=== PATIENT | male | born 1965 | race Caucasian/White ===

== ENCOUNTER 2019-02-20 12:40 | Observation (INO) | payer BC ==
[2019-02-20] MEDS ORDERED: SODIUM CHLORIDE 0.9% 1,000 ML IV STA (13:01)
[2019-02-20] MEDS ORDERED: KETOROLAC 30 MG/ML 1 ML VIAL IVP STA (13:03)
[2019-02-20 13:37] LABS: Appearance,Urine Clear (Clear); Basophils # (A) 0.1 k/uL (0-0.2); Basophils % (A) 1 %; Bilirubin,Urine Negative (Negative); Blood,Urine Negative (Negative); Color,Urine Yellow; Eosinophils # (A) 0.2 k/uL (0-0.7); Eosinophils % (A) 2 %; Glucose,Urine (UA) Negative (Negative); HGB 16.4 gm/dL (13.0-17.5); Ketones,Urine Negative (Negative); Leukocyte Esterase,Urine Negative (Negative); Lymphocytes # (A) 1.3 k/uL (1.0-4.8); Lymphocytes % (A) 15 %; MCH 31.4 pg (25.0-35.0); MCHC 33.4 g/dL (31.0-37.0); MCV 93.9 fL (80.0-100.0); Mean Platelet Volume 7.5; Monocytes # (A) 0.5 k/uL (0-1.0); Monocytes % (A) 6 %; Neutrophils # (A) 6.8 k/uL (1.3-7.7); Neutrophils % (A) 76 %; Nitrite,Urine Negative (Negative); Platelet Count 191 k/uL (150-450); Protein,Urine Negative (Negative); RBC 5.22 m/uL (4.30-5.90); RDW 13.5 % (11.5-15.5); Specific Gravity,Urine 1.016 (1.001-1.035); Urobilinogen,Urine <2.0 mg/dL (<2.0); WBC 8.9 k/uL (3.8-10.6)
--- NOTE | 2019-02-20 13:44 | XR ---
EXAMINATION TYPE: XR chest 2V DATE OF EXAM: 02/20/2019 COMPARISON: Prior chest x-ray 05/05/2013 HISTORY: Chest pain, left shoulder pain for 1 week TECHNIQUE: Frontal and lateral views of the chest are obtained. FINDINGS: There are overlying cardiac leads. Patient is rotated. There is no focal air space opacity , pleural effusion, or pneumothorax seen. The cardiac silhouette size is within normal limits. The osseous structures are intact. IMPRESSION: No acute cardiopulmonary process.
[2019-02-20 13:46] LABS: INR 0.9 (<1.2); Partial Thromboplastin Time 25.2 sec (22.0-30.0); Prothrombin Time 9.5 sec (9.0-12.0)
[2019-02-20 13:58] LABS: ALT 28 U/L (21-72); AST 23 U/L (17-59); African American GFR (CKD) >90 (>60 ml/min/1.73 sqM); Albumin 4.7 g/dL (3.5-5.0); Alkaline Phosphatase 82 U/L (38-126); Anion Gap 10 mmol/L; Blood Urea Nitrogen 14 mg/dL (9-20); Calcium 9.7 mg/dL (8.4-10.2); Carbon Dioxide 25 mmol/L (22-30); Chloride 105 mmol/L (98-107); Glucose 113 mg/dL (74-99); Magnesium 2.1 mg/dL (1.6-2.3); Non-African American GFR(CKD) >90 (>60 ml/min/1.73 sqM); Potassium 3.8 mmol/L (3.5-5.1); Sodium 140 mmol/L (137-145); Total Bilirubin 0.6 mg/dL (0.2-1.3); Total Protein 7.9 g/dL (6.3-8.2)
--- NOTE | 2019-02-20 14:18 | ED ---
Chest Pain HPI - General Chief Complaint: Chest Pain Stated Complaint: Chest pain Time Seen by Provider: 02/20/19 12:48 Source: patient Mode of arrival: ambulatory Limitations: no limitations - History of Present Illness Initial Comments: Patient is a 53-year-old male presenting to the emergency Department with complaints of chest pain that has been present for the last couple weeks. Patient describes the pain as pressure on the lateral aspect of his left chest which also radiates into the left shoulder and sometimes up into the left side of the neck. Patient states there is no alleviating or aggravating factors. Patient states he does not like going to the doctor and has not seen his doctor in many years. Patient's 2 children are with him now and they are the reason that he came in today. Patient denies any shortness of breath, fever, chills. Patient denies any recent travel. Patient denies any trauma to the area. Patient denies any heart disease. Patient admits to being an every day smoker and moderate drinker. Patient does have history of hypertension and thyroid disease. Patient has no other complaints at this time. Upon arrival to the ER, vital signs are stable. - Related Data Home Medications Medication Instructions Recorded Confirmed Diclofenac Sodium [Voltaren] 75 mg PO BID PRN 02/20/19 02/20/19 Levothyroxine Sodium [Synthroid] 100 mcg PO DAILY 02/20/19 02/20/19 Losartan/Hydrochlorothiazide 1 tab PO DAILY 02/20/19 02/20/19 [Losartan-Hctz 100-25 mg Tab] Allergies Allergy/AdvReac Type Severity Reaction Status Date / Time ampicillin Allergy stated Verified 02/20/19 13:31 "rash and became very sick as a child" cephalexin monohydrate Allergy stated Verified 02/20/19 13:31 [From Keflex] "rash and became very sick as a child" Review of Systems ROS Statement: Those systems with pertinent positive or pertinent negative responses have been documented in the HPI. ROS Other: All systems not noted in ROS Statement are negative. EKG Findings - EKG Comments: EKG Findings:: Ventricular rate 72, AL interval 136, QTC 422. Normal sinus rhythm. No acute ST segment changes. Past Medical History Past Medical History: Hypertension Additional Past Medical History / Comment(s): STATED "NO CURRENT MEDICATIONS FOR HTN, WAS GIVEN A PRESCRIPTION TO START AFTER SURGERY.", HX HAVING "STRESS" SEIZURE X 1 YRS AGO,STEROIDS W/IN 3 MOS History of Any Multi-Drug Resistant Organisms: None Reported Past Surgical History: Orthopedic Surgery Additional Past Surgical History / Comment(s): rachelle elbow surgeries,r thumb repair Past Anesthesia/Blood Transfusion Reactions: No Reported Reaction Past Psychological History: No Psychological Hx Reported Smoking Status: Current every day smoker Past Alcohol Use History: Occasional Past Drug Use History: None Reported - Past Family History Mother Additional Family Medical History / Comment(s): "leaky valve" General Exam - General Exam Comments Initial Comments: GENERAL: Well-appearing, well-nourished and in no acute distress. HEAD: Atraumatic, normocephalic. EYES: Pupils equal round and reactive to light, extraocular movements intact, sclera anicteric, conjunctiva are normal. ENT: TMs normal, nares patent, oropharynx clear without exudates. Moist mucous membranes. NECK: Normal range of motion, supple without lymphadenopathy or JVD. LUNGS: Breath sounds clear to auscultation bilaterally and equal. No wheezes rales or rhonchi. HEART: Regular rate and rhythm without murmurs, rubs or gallops. No pain with palpation of the chest. ABDOMEN: Soft, nontender, normoactive bowel sounds. No guarding, no rebound. No masses appreciated. : Deferred EXTREMITIES: Normal range of motion, no pitting or edema. No clubbing or cyanosis. NEUROLOGICAL: Normal speech, normal gait. PSYCH: Normal mood, normal affect. SKIN: Warm, Dry, normal turgor, no rashes or lesions noted. Limitations: no limitations Course Vital Signs 02/20/19 02/20/19 12:41 14:00 Temperature 97.8 F Pulse Rate 66 58 L Respiratory 16 16 Rate Blood Pressure 143/91 115/83 O2 Sat by Pulse 99 97 Oximetry [facility] Patient is a 53-year-old male presenting with chest pain that has been present for the last couple weeks. Vital signs are stable. Exam is unremarkable. Lab work shows no acute findings. Troponin is normal. EKG is normal, no acute changes. Chest x-ray is normal. Patient was given some fluids and Toradol without much relief of symptoms. I discussed workup with patient and I recommended him being admitted for observation with cardiology consult. Patient was reluctant at first to stay however did agree. Patient will be admitted under Dr. Lynn with cardiology consult. Case was discussed in detail with Dr. Tovar who agrees with this plan of care. - Wells Criteria Clinical Symptoms of DVT: (0) No Disposition Clinical Impression: Chest pain Disposition: ADMITTED IP TO THIS HOSP Condition: Stable Is patient prescribed a controlled substance at d/c from ED?: No Referrals: Ck Oliva MD [Primary Care Provider] - 1-2 days Decision Date: 02/20/19 Decision Time: 14:30
[2019-02-20] MEDS ORDERED: NITROGLYCERIN SL TABS 0.4 MG TAB SUBLINGUAL PRN (14:30)
[2019-02-20] MEDS ORDERED: NICOTINE 21MG/24HR PATCH TRANSDERM STA (14:45)
[2019-02-20 15:12] VITALS: RESP 18
[2019-02-20] MEDS ORDERED: ETODOLAC 200 MG CAPSULE PO PRN (15:45)
[2019-02-20] MEDS ORDERED: HYDROmorphone 1 MG/ML 1 ML SYRINGE IVP STA ×2 (16:12→18:14)
[2019-02-20] MEDS: NITROGLYCERIN OINT 1 INCH/GM PACKET TOPICAL SCH (16:23)
--- NOTE | 2019-02-20 20:40 | P.CRDCN ---
History of Present Illness Consult date: 02/20/19 Chief complaint: Chest pain History of present illness: This is a very pleasant 53-year-old gentleman who was admitted to the observation unit for chest discomfort consulted to see the patient because of that. The patient does have a past medical history significant for hypertension as well as history of smoking. He was in his usual state of health until about a week ago where he has been under a lot of stress lately when he started experi encing chest discomfort, mainly beneath the left nipple as well as the lateral wall of the chest on the left side. The chest discomfort also according to review to the left arm and also associated with no feeling in the neck. No associated symptoms of shortness of breath, sweating, dizziness, or syncope. The patient clearly stated that the discomfort has been constant for the last week and not getting better or worse. The chest discomfort is clearly not exertional related as well. Because he was having chest discomfort tonight, his daughter and his son requested him to come to the hospital. No history of coronary artery disease and the patient never seen a marine photographer in the past. Achy she showed sinus rhythm without any ischemic or concerning ST or T-wave abnormalities. The first set of cardiac enzymes came in to be unremarkable. The chest x-ray did not show any acute abnormalities. The patient never had any cardiac testing like a stress test or heart catheterization in the past. Currently he is still having chest discomfort and he states is slightly better compared to before. His physical examination is unremarkable. Past Medical History Past Medical History: Hypertension, Seizure Disorder, Thyroid Disorder Additional Past Medical History / Comment(s): One "stress related" seizure many years ago, hypothyroid, pain in multiple joints. History of Any Multi-Drug Resistant Organisms: None Reported Past Surgical History: Orthopedic Surgery Additional Past Surgical History / Comment(s): rachelle elbow surgeries, r thumb repair, R knee arthroscopy, R wrist surgery x 3 for reconstruction/has metal plate. Past Anesthesia/Blood Transfusion Reactions: No Reported Reaction Smoking Status: Current every day smoker - Past Family History Mother Additional Family Medical History / Comment(s): "leaky valve" Father History Unknown: Yes Medications and Allergies Home Medications Medication Instructions Recorded Confirmed Type Diclofenac Sodium [Voltaren] 75 mg PO BID PRN 02/20/19 02/20/19 History Levothyroxine Sodium [Synthroid] 100 mcg PO DAILY 02/20/19 02/20/19 History Losartan/Hydrochlorothiazide 1 tab PO DAILY 02/20/19 02/20/19 History [Losartan-Hctz 100-25 mg Tab] Allergies Allergy/AdvReac Type Severity Reaction Status Date / Time ampicillin Allergy stated Verified 02/20/19 13:31 "rash and became very sick as a child" cephalexin monohydrate Allergy stated Verified 02/20/19 13:31 [From Keflex] "rash and became very sick as a child" Physical Exam Vitals: Vital Signs Temp Pulse Pulse Pulse Resp BP BP 02/20/19 19:49 97.3 F L 60 18 112/66 02/20/19 16:44 02/20/19 15:10 97.5 F L 55 L 18 02/20/19 14:54 98 F 02/20/19 14:00 58 L 16 115/83 02/20/19 12:41 97.8 F 66 16 143/91 BP Pulse Ox 02/20/19 19:49 96 02/20/19 16:44 95 02/20/19 15:10 159/91 100 02/20/19 14:54 02/20/19 14:00 97 02/20/19 12:41 99 Intake and Output 02/20/19 02/20/19 02/20/19 06:59 14:59 22:59 Intake Total 240 Balance 240 Intake: Oral 240 Other: Voiding Method Toilet Weight 95.254 kg 95.254 kg - Constitutional General appearance: no acute distress - Respiratory Respiratory: bilateral: CTA - Cardiovascular Rhythm: regular Heart sounds: normal: S1, S2 Results 02/20/19 13:20 02/20/19 13:20 Cardiac Enzymes 02/20/19 02/20/19 02/20/19 Range/Units 13:20 13:20 19:03 AST 23 (17-59) U/L Troponin I <0.012 <0.012 (0.000-0.034) ng/mL Coagulation 02/20/19 Range/Units 13:20 PT 9.5 (9.0-12.0) sec APTT 25.2 (22.0-30.0) sec CBC 02/20/19 Range/Units 13:20 WBC 8.9 (3.8-10.6) k/uL RBC 5.22 (4.30-5.90) m/uL Hgb 16.4 (13.0-17.5) gm/dL Hct 49.0 (39.0-53.0) % Plt Count 191 (150-450) k/uL Comprehensive Metabolic Panel 02/20/19 Range/Units 13:20 Sodium 140 (137-145) mmol/L Potassium 3.8 (3.5-5.1) mmol/L Chloride 105 (98-107) mmol/L Carbon Dioxide 25 (22-30) mmol/L BUN 14 (9-20) mg/dL Creatinine 0.78 (0.66-1.25) mg/dL Glucose 113 H (74-99) mg/dL Calcium 9.7 (8.4-10.2) mg/dL AST 23 (17-59) U/L ALT 28 (21-72) U/L Alkaline Phosphatase 82 (38-126) U/L Total Protein 7.9 (6.3-8.2) g/dL Albumin 4.7 (3.5-5.0) g/dL Current Medications Generic Name Dose Route Start Last Admin Trade Name Freq PRN Reason Stop Dose Admin Aspirin 325 mg 02/21/19 09:00 Aspirin PO DAILY [facility] Etodolac 400 mg 02/20/19 15:45 Lodine PO BID PRN Pain HCTZ/Losartan Potassium 2 each 02/21/19 09:00 Hyzaar 50-12.5 PO DAILY [facility] Levothyroxine Sodium 100 mcg 02/21/19 06:30 Synthroid PO DAILY@0630 [facility] Morphine Sulfate 4 mg 02/20/19 15:48 Morphine Sulfate (Inj) IVP Q6HR PRN Pain Nitroglycerin 0.4 mg 02/20/19 14:30 Nitrostat SUBLINGUAL Q5M PRN Chest Pain Nitroglycerin 1 inch 02/20/19 18:00 02/20/19 16:23 Nitro-Bid Oint TOPICAL 1 inch Q6HR [facility] Administration Intake and Output 02/20/19 02/20/19 02/20/19 06:59 14:59 22:59 Intake Total 240 Balance 240 Intake: Oral 240 Other: Voiding Method Toilet Weight 95.254 kg 95.254 kg Patient Weight 02/21/19 06:59 Weight 95.254 kg 02/20/19 13:20 02/20/19 13:20 Assessment and Plan Assessment: Assessment #1 atypical chest discomfort #2 hypertension #3 significant history of smoking Plan #1 rule out acute coronary syndrome #2 rule out pulmonary embolism #3 rule out severe underlying coronary artery disease #4 follow-up with the severe cardiac enzymes #5 follow-up with The patient Thank you for allowing us participate in his care
[2019-02-21] MEDS: MORPHINE SULFATE 4 MG/ML SYRINGE IVP PRN ×4 (00:42→19:40)
[2019-02-21] MEDS: NITROGLYCERIN OINT 1 INCH/GM PACKET TOPICAL SCH ×6 (00:42→23:11)
[2019-02-21 05:53] LABS: Cholesterol 194 mg/dL (<200); HDL Cholesterol 35 mg/dL (40-60); LDL Cholesterol,Calculated 134 mg/dL (0-99); Triglycerides 125 mg/dL (<150)
[2019-02-21] MEDS: LEVOTHYROXINE 100 MCG TAB PO SCH (06:49)
[2019-02-21] MEDS: ASPIRIN 325 MG TAB PO SCH (10:05)
[2019-02-21] MEDS: LOSARTAN-HCTZ 50-12.5 MG 1 EACH TAB PO SCH (10:05)
--- NOTE | 2019-02-21 11:22 | P.PN ---
Subjective Progress Note Date: 02/21/19 Principal diagnosis: Chest pain This is a pleasant 53-year-old female patient with a past medical history significant for hypertension and history of smoking presented to the hospital with a chest discomfort. The EKG showed sinus rhythm without any ST or T-wave abnormalities. The cardiac enzymes were checked and came in to be unremarkable. The patient was ruled out for acute coronary event. He was seen at this morning. He continues to have ongoing chest discomfort throughout the night. Having said that, I am concerned about severe underlying coronary artery disease and I recommended proceeding with coronary angiogram to be done in the next 12-24 hours. Objective - Vital Signs Vital signs: Vital Signs Temp 97.9 F 02/21/19 07:56 Pulse 63 02/21/19 11:04 Resp 18 02/21/19 07:56 BP 127/74 02/21/19 11:04 Pulse Ox 95 02/21/19 07:56 Intake & Output 02/20/19 02/21/19 02/21/19 18:59 06:59 18:59 Intake Total 240 Balance 240 Weight 95.254 kg Intake: Oral 240 Other: Voiding Method Toilet Toilet Toilet # Voids 1 - Constitutional General appearance: Present: no acute distress - Respiratory Respiratory: bilateral: CTA - Cardiovascular Rhythm: regular Heart sounds: normal: S1, S2 - Labs CBC & Chem 7: 02/20/19 13:20 02/20/19 13:20 Labs: Abnormal Lab Results - Last 24 Hours (Table) 02/20/19 02/20/19 Range/Units 13:20 13:20 Glucose 113 H (74-99) mg/dL LDL Cholesterol, Calc 134 H (0-99) mg/dL HDL Cholesterol 35 L (40-60) mg/dL Assessment and Plan Assessment: Assessment #1 atypical chest discomfort #2 hypertension #3 significant history of smoking Plan #1 acute coronary syndrome was ruled out #2 giving the ongoing chest discomfort, I would recommend proceeding with coronary angiogram
[2019-02-21 11:31] VITALS: BMI 26.9
[2019-02-21] MEDS: NICOTINE 21MG/24HR PATCH TRANSDERM SCH (11:49)
--- NOTE | 2019-02-21 15:30 | P.HPIM ---
History of Present Illness H&P Date: 02/21/19 Chief Complaint: Chest pain History of presenting complaint: This is a pleasant 53-year-old patient of Dr. Ck Oliva. Chronic stable medical conditions include hypertension, hypothyroid, social stressors. Patient is going through stress because of his relationship with his . For 2 weeks patient been having a pressure-like sensation on the left side of the chest. Is also going down her left arm. Sometimes breaks out in a sweat. No dizziness no lightheadedness or shortness of breath. Not related to activity with exertion or to rest. No prior cardiac history. Patient otherwise active. Patient is brought in to rule out a cardiac cause. Review of systems: GEN.: None EYES: None HEENT: None NECK: None RESPIRATORY: None CARDIOVASCULAR: As above GASTROINTESTINAL: None GENITOURINARY: None MUSCULOSKELETAL: None LYMPHATICS: None HEMATOLOGICAL: None PSYCHIATRY: Anxious, not sleeping too well NEUROLOGICAL: None Past medical history to include: Hypertension, hypothyroid, no definite seizure disorder Social history: . Does smoke. This is a pack daily for 23 years. 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 Family history: Leaky valve Physical examination: VITAL SIGNS: 97.8, 66, 16, 143/91, 39% room air GENERAL: BMI 27, sitting up slightly anxious. EYES: Pupils equal. Conjunctiva normal. HEENT: External appearance of nose and ears normal, oral cavity grossly normal. NECK: JVD not raised; masses not palpable. HEART: First and second heart sounds are normal; no edema. LUNGS: Respiratory rate normal; clear to auscultation. ABDOMEN: Soft, nontender, liver spleen not palpable, no masses palpable. PSYCH: Alert and oriented x3; mood and affect slightly anxiousl. NEUROLOGICAL: Cranial nerves grossly intact; no facial asymmetry, power and sensation grossly intact. LYMPHATICS: No lymph nodes palpable in the axilla and neck Investigations: White count 8.9 hemoglobin 16.4 platelets 191 progression 3.8 creatinine 0.78 Troponin I 3 negative EKG tracing personally reviewed by me-normal sinus rhythm Chest x-ray film personally reviewed by me-lung gaming clear Assessment: -Left anterior chest wall pain going on the left arm. Present for 2 weeks. Not related to related to exertion. EKG is normal. Troponins are negative. Could be musculoskeletal pain. Cannot rule out a cardiac cause. -Essential hypertension -Hypothyroid -Chronic nicotine dependence patient cigarette smoker -Social stressors from issues with his Plan: Cardiology consulted. Patient is on aspirin. Nitropaste. Cardiology is being a cardiac cath tomorrow morning. Care was discussed with the patient. Questions were answered. Patient's son and daughter in the room with him. Past Medical History Past Medical History: Hypertension, Seizure Disorder, Thyroid Disorder Additional Past Medical History / Comment(s): One "stress related" seizure many years ago, hypothyroid, pain in multiple joints. History of Any Multi-Drug Resistant Organisms: None Reported Past Surgical History: Orthopedic Surgery Additional Past Surgical History / Comment(s): rachelle elbow surgeries, r thumb repair, R knee arthroscopy, R wrist surgery x 3 for reconstruction/has metal plate. Past Anesthesia/Blood Transfusion Reactions: No Reported Reaction Smoking Status: Current every day smoker - Past Family History Mother Additional Family Medical History / Comment(s): "leaky valve" Father History Unknown: Yes Medications and Allergies Home Medications Medication Instructions Recorded Confirmed Type Diclofenac Sodium [Voltaren] 75 mg PO BID PRN 02/20/19 02/20/19 History Levothyroxine Sodium [Synthroid] 100 mcg PO DAILY 02/20/19 02/20/19 History Losartan/Hydrochlorothiazide 1 tab PO DAILY 02/20/19 02/20/19 History [Losartan-Hctz 100-25 mg Tab] Allergies Allergy/AdvReac Type Severity Reaction Status Date / Time ampicillin Allergy stated Verified 02/20/19 13:31 "rash and became very sick as a child" cephalexin monohydrate Allergy stated Verified 02/20/19 13:31 [From Keflex] "rash and became very sick as a child" Physical Exam Vitals: Vital Signs Temp Pulse Pulse Pulse Resp BP BP 02/21/19 07:56 97.9 F 66 18 123/72 02/21/19 04:00 97.6 F 67 18 111/67 02/20/19 23:23 97.8 F 60 18 111/66 02/20/19 19:49 97.3 F L 60 18 112/66 02/20/19 16:44 02/20/19 15:10 97.5 F L 55 L 18 02/20/19 14:54 98 F 02/20/19 14:00 58 L 16 115/83 02/20/19 12:41 97.8 F 66 16 143/91 BP Pulse Ox 02/21/19 07:56 95 02/21/19 04:00 95 02/20/19 23:23 94 L 02/20/19 19:49 96 02/20/19 16:44 95 02/20/19 15:10 159/91 100 02/20/19 14:54 02/20/19 14:00 97 02/20/19 12:41 99 Intake and Output 02/20/19 02/21/19 02/21/19 22:59 06:59 14:59 Intake Total 240 Balance 240 Intake: Oral 240 Other: Voiding Method Toilet Toilet Toilet # Voids 2 1 Weight 95.254 kg Results CBC & Chem 7: 02/20/19 13:20 02/20/19 13:20 Labs: Abnormal Lab Results - Last 24 Hours (Table) 02/20/19 02/20/19 Range/Units 13:20 13:20 Glucose 113 H (74-99) mg/dL LDL Cholesterol, Calc 134 H (0-99) mg/dL HDL Cholesterol 35 L (40-60) mg/dL Thrombosis Risk Factor Assmnt - Choose All That Apply Any of the Below Risk Factors Present?: Yes Each Factor Represents 1 point: Age 41-60 years, Obesity (BMI >25) Other Risk Factors: No Other congenital or acquired thrombophilia - If yes, enter type in comment: No Thrombosis Risk Factor Assessment Total Risk Factor Score: 2 Thrombosis Risk Factor Assessment Level: Low Risk
[2019-02-21] MEDS ORDERED: CALCIUM CARBONATE 500 MG CHEWABLE PO PRN (18:16)
[2019-02-22] MEDS: MORPHINE SULFATE 4 MG/ML SYRINGE IVP PRN ×2 (00:46→06:14)
[2019-02-22] MEDS: LEVOTHYROXINE 100 MCG TAB PO SCH (06:13)
[2019-02-22] MEDS: ASPIRIN 325 MG TAB PO SCH (06:13)
[2019-02-22] MEDS: LOSARTAN-HCTZ 50-12.5 MG 1 EACH TAB PO SCH (06:13)
[2019-02-22 07:23] VITALS: PULSE 61; TEMP 97.7
[2019-02-22] MEDS ORDERED: LIDOCAINE 1% INJ 10MG/ML (20 ML MDV) ONE (08:03)
[2019-02-22] MEDS ORDERED: VERAPAMIL 2.5 MG/ML 2 ML AMP ONE (08:04)
[2019-02-22] MEDS ORDERED: SODIUM CHLORIDE 0.9% 1,000 ML IV ONE (08:08)
[2019-02-22] MEDS ORDERED: MIDAZOLAM 2 MG/2 ML VIAL IVP ONE (08:32)
[2019-02-22] MEDS ORDERED: LIDOCAINE 1% INJ 10MG/ML (20 ML MDV) SQ ONE (08:37)
[2019-02-22] MEDS ORDERED: HEPARIN SODIUM 1,000 UN/ML (10ML VL) ONE (08:38)
[2019-02-22] MEDS: VERAPAMIL SYRINGE (5 MG/10 ML) INTRAARTER ONE ×2 (08:40→08:46)
[2019-02-22] MEDS ORDERED: HEPARIN SODIUM 1,000 UN/ML (10ML VL) IV ONE (08:40)
[2019-02-22] MEDS ORDERED: IOPAMIDOL-370 125ML BTL INJ ONE (08:46)
[2019-02-22] MEDS ORDERED: RX INFO: IV CONTRAST WAS GIVEN 1 EACH MISC MISCELLANE PRN (08:52)
[2019-02-22] MEDS ORDERED: SODIUM CHLORIDE 0.9% 1,000 ML IV SCH (09:00)
--- NOTE | 2019-02-22 09:39 | CC ---
CARDIAC CATHETERIZATION REPORT DATE OF SERVICE: February 22, 2019 PERFORMING PHYSICIAN: Jarod Sinclair MD. PROCEDURE PERFORMED: 1. Selective right and left coronary angiogram. 2. Left heart catheterization. INDICATION: This is a 53-year-old gentleman with hypertension and smoking, who presents and was admitted to the hospital with chest discomfort and ruled in for acute [id number] myocardial infarction. He continues to have ongoing chest discomfort, worse with exertion and because of that a heart catheterization was advised. APPROACH: Right radial artery. COMPLICATION: None. LEVEL OF SEDATION: Moderate with sedation length of 10 minutes. PROCEDURE DESCRIPTION: After obtaining an informed consent, the patient was brought to the cardiac cath lab technologist. The right radial artery was cannulated using micropuncture technique, the micropuncture wire passed easily. Then I placed a 6-Danish sheath 11 cm in the right radial artery. After that, I gave the patient 2 mg of verapamil IA and 10,000 units of heparin IV. Selective right and left coronary angiogram performed using JR4 and JL3.5 catheters. Left heart catheterization was performed using JL3.5 catheter, which flipped into the LV then I did pullback across aortic valve. The procedure was completed without any complication. SELECTIVE CORONARY ANGIOGRAM: 1. The right coronary artery is a moderate to large caliber vessel and is a dominant vessel and appeared to be angiographically normal. 2. The left main is angiographically normal. It bifurcates into LCX and LAD. 3. The LCX is a large caliber vessel. It is a nondominant vessel. The left circumflex itself is angiographically normal. In the midportion, it gives rise into a large first OM branch and distally gives rise into a second OM branch which worked as a PDA. Both branches are angiographically normal. 4. The LAD: The proximal LAD appeared to be normal. The mid LAD by the bifurcation of the first diagonal branch has mild disease only. The LAD after that appeared to be angiographically normal and gives rise into a second diagonal branch which seems to be normal. HEMODYNAMICS: The LVEDP was 10 mmHg without significant gradient across the aortic valve. CONCLUSION: 1. Mild nonobstructive coronary artery disease. 2. Normal left ventricular end-diastolic pressure. POSTPROCEDURE MANAGEMENT: 1. Medical treatment. 2. Follow up with the patient. MMODL / IJN: [id number] /
[2019-02-22 10:49] VITALS: BP 119/73
[2019-02-22] MEDS: NICOTINE 21MG/24HR PATCH TRANSDERM SCH (11:40)
--- NOTE | 2019-02-22 23:33 | P.DS ---
Providers Date of admission: 02/20/19 14:34 Expected date of discharge: 02/22/19 Attending physician: Branden Lynn Consults: 02/20/19 14:30 Consult Physician Urgent Consulting Provider: Mg Sexton Consult Reason/Comments: Chest pain Do you want consulting provider notified?: Yes Primary care physician: Ck Oliva [place] [facility] Course: Chief Complaint: Chest pain History of presenting complaint: This is a pleasant 53-year-old patient of Dr. Ck Oliva. Chronic stable medical conditions include hypertension, hypothyroid, social stressors. Patient is going through stress because of his relationship with his . For 2 weeks patient been having a pressure-like sensation on the left side of the chest. Is also going down her left arm. Sometimes breaks out in a sweat. No dizziness no lightheadedness or shortness of breath. Not related to activity with exertion or to rest. No prior cardiac history. Patient otherwise active. Patient is brought in to rule out a cardiac cause. Cardiac catheterization showed minimal disease. Patient is significantly sleep deprived. Symptoms are felt a certain degree to be psychosomatic. Importance of sleep was discussed with the patient. Mid Level Game Designer: Dr. Sinclair from cardiology Physical examination: VITAL SIGNS: 97.7, 61, 18, 120/71, 94% room air GENERAL: Sitting up, slightly anxious EYES: Pupils equal. Conjunctiva normal. HEENT: External appearance of nose and ears normal, oral cavity grossly normal. NECK: JVD not raised; masses not palpable. HEART: First and second heart sounds are normal; no edema. LUNGS: Respiratory rate normal; clear to auscultation. ABDOMEN: Soft, nontender, liver spleen not palpable, no masses palpable. PSYCH: Alert and oriented x3; mood and affect slightly anxiousl. Investigations: White count 8.9 hemoglobin 16.4 platelets 191 progression 3.8 creatinine 0.78 Troponin I 3 negative EKG tracing personally reviewed by me-normal sinus rhythm Chest x-ray film personally reviewed by me-lung gaming clear Cardiac catheterization-mild coronary artery disease Assessment: -Left anterior chest wall , possibly psychosomatic -Essential hypertension -Hypothyroid -Chronic nicotine dependence patient cigarette smoker -Social stressors from issues with his -Chronic sleep deprivation Disposition: Home Patient Condition at Discharge: Stable Plan - Discharge Summary Discharge Rx Participant: No New Discharge Prescriptions: New Aspirin 81 mg PO DAILY #30 chewable Nicotine 21Mg/24Hr Patch [Habitrol] 1 patch TRANSDERM DAILY #14 patch Famotidine [Pepcid] 20 mg PO BID #60 tablet Continue Levothyroxine Sodium [Synthroid] 100 mcg PO DAILY Losartan/Hydrochlorothiazide [Losartan-Hctz 100-25 mg Tab] 1 tab PO DAILY Diclofenac Sodium [Voltaren] 75 mg PO BID PRN PRN Reason: Pain Discharge Medication List Diclofenac Sodium [Voltaren] 75 mg PO BID PRN 02/20/19 [History] Levothyroxine Sodium [Synthroid] 100 mcg PO DAILY 02/20/19 [History] Losartan/Hydrochlorothiazide [Losartan-Hctz 100-25 mg Tab] 1 tab PO DAILY 02/20/19 [History] Aspirin 81 mg PO DAILY #30 chewable 02/22/19 [Rx] Famotidine [Pepcid] 20 mg PO BID #60 tablet 02/22/19 [Rx] Nicotine 21Mg/24Hr Patch [Habitrol] 1 patch TRANSDERM DAILY #14 patch 02/22/19 [Rx] Follow up Appointment(s)/Referral(s): Jarod Sinclair MD [STAFF PHYSICIAN] - 1 Week (Call office on Saturday and make appointment for a Site Check with Dr. Sinclair in one week) Ck Oliva MD [Primary Care Provider] - 1-2 days Patient Instructions/Handouts: *[facility] - After Heart Catheterization - Biosolids Management Technician Instructions Activity/Diet/Wound Care/Special Instructions: See Activity Restriction Instructions
== END 2019-02-22 14:20 | disposition home or self-care (01) ==
LOC: EC 12:40 → 1SOBS 14:34
PROVIDERS: ADMIT Hospitalist; ATTEND Hospitalist
DX: R07.89 Other chest pain (principal); I10 Essential (primary) hypertension; Z72.820 Sleep deprivation; R61 Generalized hyperhidrosis; E03.9 Hypothyroidism, unspecified; G40.89 Other seizures; F17.210 Nicotine dependence, cigarettes, uncomplicated; E66.9 Obesity, unspecified; Z68.27 Body mass index [BMI] 27.0-27.9, adult; I25.10 Atherosclerotic heart disease of native coronary artery without angina pectoris; F41.9 Anxiety disorder, unspecified; Z63.0 Problems in relationship with spouse or partner; Z79.890 Hormone replacement therapy; Z79.82 Long term (current) use of aspirin; Z79.1 Long term (current) use of non-steroidal anti-inflammatories (NSAID); Z79.899 Other long term (current) drug therapy; Z88.0 Allergy status to penicillin; Z88.1 Allergy status to other antibiotic agents; Z86.69 Personal history of other diseases of the nervous system and sense organs; Z82.49 Family history of ischemic heart disease and other diseases of the circulatory system
CPT/HCPCS: 93005 ×2; 96375 ×2; 96376 ×2; 96361; 96374; 99285; 36415; 93458; 85379; 80061; 80053; 83735; 84484 ×2; 85025; 85610; 85730; 81003; 71046; 99152; G0378 ×3; C1769; C1894; S4990 ×2; J2250; J2270 ×2; J2001; J1885; J1644; J1170; Q9967

== ENCOUNTER → 2019-04-10 | Outpatient (CLI) | payer BC ==
[2019-04-10 12:14] LABS: Chol/HDL Ratio 3.6; LDL Cholesterol,Calculated 93.8 mg/dL (0.0-131.0); VLDL Calculation 10.2 mg/dL (5.00-40.00)
== END | disposition home or self-care (01) ==
LOC: LABWHC1 06:50
PROVIDERS: ATTEND Internal Medicine Interventional Cardiology
DX: E78.2 Mixed hyperlipidemia (principal)
CPT/HCPCS: 36415; 80061; 84450; 84460

== ENCOUNTER → 2019-04-10 | Outpatient (CLI) | payer BC ==
--- NOTE | 2019-04-10 12:54 | US ---
EXAMINATION TYPE: US carotid duplex BILAT DATE OF EXAM: 04/10/2019 COMPARISON: NONE CLINICAL HISTORY: I25.84 CORONARY ATHEROSCLEROSIS DUE TO CALCIFIED CORONARY LE. EXAM MEASUREMENTS: RIGHT: Peak Systolic Velocity (PSV) cm/sec ----- Right CCA: 92.2 ----- Right ICA: 102 ----- Right ECA: 136 ICA/CCA ratio: 0.9 RIGHT: End Diastole cm/sec ----- Right CCA: 22.7 ----- Right ICA: 15.0 ----- Right ECA: 24.0 LEFT: Peak Systolic Velocity (PSV) cm/sec ----- Left CCA: 94 ----- Left ICA: 82 ----- Left ECA: 157 ICA/CCA ratio: 1.1 LEFT: End Diastole cm/sec ----- Left CCA: 23.1 ----- Left ICA: 25 ----- Left ECA: 27 VERTEBRALS (direction of flow): Right Vertebral: Antegrade Left Vertebral: Antegrade Rhythm: Normal No significant stenosis seen. IMPRESSION: Mild degree of grayscale atheromatous plaquing with no sonographically evident hemodynam ically significant stenosis within either visualized internal nor common carotid arterial system. Criteria for Assigning % of Stenosis / Diameter reduction (Estimation based on the indirect measurements of the internal carotid artery velocities (ICA PSV). 1. Normal (no stenosis)=ICA PSV < 125 cm/s: ratio < 2.0: ICA EDV<40 cm/s. 2. Less than 50% stenosis=ICA PSV < 125 cm/s: ratio < 2.0: ICA EDV<40 cm/s. 3. 50 to 69% stenosis=ICA PSV of 125 to 230 cm/s: ration 2.0 ? 4.0: ICA EDV 40-100 cm/s. 4. Greater than 70% stenosis to near occlusion= ICA PSV > 230 cm/s: ratio > 4.0: ICA EDV > 100 cm/s. 5. Near occlusion= ICA PSV velocities may be low or undetectable: variable ratio and ICA EDV. 6. Total occlusion=unable to detect flow.
== END | disposition home or self-care (01) ==
LOC: RADUSWWP 11:39
PROVIDERS: ATTEND Family Medicine
DX: I25.84 Coronary atherosclerosis due to calcified coronary lesion (principal)
CPT/HCPCS: 93880

== ENCOUNTER → 2021-01-30 | Outpatient (CLI) | payer BC ==
[2021-01-30 17:01] LABS: Basophils # (A) 0.1 k/uL (0-0.2); Basophils % (A) 1 %; Eosinophils # (A) 0.3 k/uL (0-0.7); Eosinophils % (A) 4 %; HCT 39.4 % (39.0-53.0); HGB 13.4 gm/dL (13.0-17.5); Lymphocytes % (A) 26 %; MCHC 33.9 g/dL (31.0-37.0); MCV 91.4 fL (80.0-100.0); Mean Platelet Volume 7.7; Monocytes # (A) 0.6 k/uL (0-1.0); Monocytes % (A) 7 %; Neutrophils # (A) 4.7 k/uL (1.3-7.7); Neutrophils % (A) 60 %; Platelet Count 231 k/uL (150-450); RBC 4.31 m/uL (4.30-5.90); RDW 14.1 % (11.5-15.5); WBC 7.8 k/uL (3.8-10.6)
--- NOTE | 2021-01-30 17:31 | CT ---
EXAMINATION TYPE: CT abdomen pelvis wo con DATE OF EXAM: 01/30/2021 COMPARISON: None HISTORY: LLQ pain. Stat hold and call CT DLP: 1191 mGycm Automated exposure control for dose reduction was used. Images obtained from the diaphragm to the floor the pelvis without contrast. Lung bases are clear. There is no pleural effusion. Heart size is normal. There is no pericardial eff usion. There is 2 cm cyst in the anterior right lobe of the liver. Spleen is intact. Pancreas appears normal. Stomach is intact. The bile ducts are not dilated. Gallbladder appears normal. There is no adrenal mass. Kidneys show normal size and contour. There is no hydronephrosis. The urete rs are not dilated. There is no retroperitoneal adenopathy. There is minimal vascular calcification. Appendix is posterior and appears normal. Bladder distends s moothly. There is no inguinal hernia. There is no free fluid in the pelvis. There are multiple sigmoi d diverticula. There is no sign of diverticulitis. There is no evidence of a pelvic mass. There is no mesenteric edema. There is no ascites or free air. There is no evidence of a bowel obstru ction. The lumbar vertebra have normal alignment. There is vacuum disc at L5-S1. There is spurring of the en dplates. The bony pelvis is intact. The hip joints are intact. IMPRESSION: No evidence of renal stone or obstruction. Normal appendix. Sigmoid diverticulosis without diverticulitis.
== END | disposition home or self-care (01) ==
LOC: RADCTMAIN 15:59
PROVIDERS: ATTEND Nurse Practitioner Adult Health
DX: K57.30 Diverticulosis of large intestine without perforation or abscess without bleeding (principal)
CPT/HCPCS: 74176; 85025

== ENCOUNTER → 2021-03-02 | Day surgery (SDC) | payer BC ==
[2021-02-28 17:44] VITALS: BMI 34.7
[~2021-03-02] MED LIST: ALPRAZolam 0.25 MG TAB PO PRN; ALPRAZolam 0.5 MG TAB PO PRN; ASPIRIN 325 MG TAB PO STA; ATORVASTATIN 80 MG TAB PO STA; HEPARIN SODIUM 1,000 UN/ML (10ML VL) IV ONE; HEPARIN SODIUM 1,000 UN/ML (10ML VL) ONE; HEPARIN SODIUM,PORCINE 10,000 UNIT in SODIUM CHLORIDE 0.9% 1,000 ML IRRIGATION PRN; HEPARIN SODIUM,PORCINE 2,500 UNIT in SODIUM CHLORIDE 0.9% 250 ML IRRIGATION PRN; IOPAMIDOL-370 125ML BTL INJ ONE; LIDOCAINE 1% INJ 10MG/ML (20 ML MDV) ONE; LIDOCAINE 1% INJ 10MG/ML (20 ML MDV) SQ ONE; MIDAZOLAM 2 MG/2 ML VIAL IV ONE; NITROGLYCERIN SL TABS 0.4 MG TAB SUBLINGUAL PRN; RX INFO: IV CONTRAST WAS GIVEN 1 EACH MISC MISCELLANE PRN; SODIUM CHLORIDE 0.9% 1,000 ML IV ONE; SODIUM CHLORIDE 0.9% 1,000 ML IV SCH; SODIUM CHLORIDE 0.9% 1,000 ML in EMPTY BAG 1 BAG IV SCH; VERAPAMIL 2.5 MG/ML 2 ML AMP ONE; fentaNYL (PF) 50 MCG/ML 5 ML AMP IV ONE
[2021-03-02 10:36] VITALS: RESP 16; TEMP 98.3
[2021-03-02 10:38] LABS: Glucose,Whole Blood 104 mg/dL (75-99)
[2021-03-02] MEDS: VERAPAMIL SYRINGE (5 MG/10 ML) INTRAARTER ONE ×2 (11:17→11:24)
--- NOTE | 2021-03-02 11:55 | CC ---
CARDIAC CATHETERIZATION REPORT DATE OF SERVICE: March 02, 2021. PERFORMING PHYSICIAN: Jarod Sinclair MD. PROCEDURE PERFORMED: 1. Selective right and left coronary angiogram. 2. Left heart catheterization. INDICATION: This is a 55-year-old gentleman who was experiencing symptoms of chest pain and underwent myocardial perfusion imaging stress test and that revealed ischemia anteriorly and because of that, heart catheterization was advised. APPROACH: Right radial artery. COMPLICATION: None. LEVEL OF SEDATION: Moderate with sedation length of 15 minutes. PROCEDURE DESCRIPTION: After obtaining an informed consent, the patient was brought to the cardiac shop laborer. The right radial artery was cannulated using micropuncture technique under ultrasound guidance, the micropuncture wire passed easily. Then I placed a 6-[place] sheath at the right radial artery. I gave the patient 2 mg of verapamil IA and 6000 units of heparin IV. Selective right and left coronary angiogram performed using JR4 and JL3.5 catheters. Left heart catheterization was performed using 5-[place] pigtail catheter. The procedure was completed without any complication. SELECTIVE CORONARY ANGIOGRAM: 1. The RCA is a large caliber vessel. It is a dominant vessel. The RCA is angiographically normal. It distally bifurcates into PDA and PLV branches, both appeared to be angiographically normal. 2. Left main is angiographically normal. It bifurcates into left circumflex as well as left anterior descending artery. 3. The left circumflex is a large caliber vessel. It is a nondominant vessel. The left circumflex is angiographically normal and gives rise to an OM branch which appeared to be angiographically normal. 4. The LAD is a large-caliber vessel. The proximal LAD has a lesion appeared to be in the range of 30 to 40%. The mid LAD appeared to be angiographically normal. The LAD gives rise into two diagonal branches which seems to be angiographically normal. 5. HEMODYNAMICS: The LVEDP was about 8 mmHg without significant gradient across aortic valve. CONCLUSION: 1. 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 2. Normal left-sided filling pressures. POSTPROCEDURE MANAGEMENT: 1. Medical treatment. 2. Follow up with the patient. MMODL / IJN: [id number] /
[2021-03-02 16:03] VITALS: BP 126/72; PULSE 49
== END ==
LOC: CATHCVL 10:14
PROVIDERS: ATTEND Internal Medicine Interventional Cardiology
DX: I25.110 Atherosclerotic heart disease of native coronary artery with unstable angina pectoris (principal); I10 Essential (primary) hypertension; E78.00 Pure hypercholesterolemia, unspecified; E78.5 Hyperlipidemia, unspecified; F17.210 Nicotine dependence, cigarettes, uncomplicated; Z20.822 Contact with and (suspected) exposure to COVID-19; Z79.84 Long term (current) use of oral hypoglycemic drugs; Z79.82 Long term (current) use of aspirin; Z79.890 Hormone replacement therapy; Z79.899 Other long term (current) drug therapy; Z88.1 Allergy status to other antibiotic agents; Z88.0 Allergy status to penicillin
CPT/HCPCS: 93458; 87635; J2250; J2001; J3010; J1644; Q9967

== ENCOUNTER 2021-04-05 06:16 | Day surgery (SDC) | payer BC ==
[2021-03-31 12:12] VITALS: BMI 34.0
[~2021-04-05 06:16] MED LIST changes: -ALPRAZolam 0.25 MG TAB PO PRN; -ALPRAZolam 0.5 MG TAB PO PRN; -ASPIRIN 325 MG TAB PO STA; -ATORVASTATIN 80 MG TAB PO STA; -HEPARIN SODIUM 1,000 UN/ML (10ML VL) IV ONE; -HEPARIN SODIUM 1,000 UN/ML (10ML VL) ONE; -HEPARIN SODIUM,PORCINE 10,000 UNIT in SODIUM CHLORIDE 0.9% 1,000 ML IRRIGATION PRN; -HEPARIN SODIUM,PORCINE 2,500 UNIT in SODIUM CHLORIDE 0.9% 250 ML IRRIGATION PRN; -IOPAMIDOL-370 125ML BTL INJ ONE; +LACTATED RINGERS 1,000 ML IV SCH; +LIDOCAINE 1% (10MG/ML) FOR IV START INTRADERMA PRN; -LIDOCAINE 1% INJ 10MG/ML (20 ML MDV) ONE; -LIDOCAINE 1% INJ 10MG/ML (20 ML MDV) SQ ONE; -MIDAZOLAM 2 MG/2 ML VIAL IV ONE; -NITROGLYCERIN SL TABS 0.4 MG TAB SUBLINGUAL PRN; -RX INFO: IV CONTRAST WAS GIVEN 1 EACH MISC MISCELLANE PRN; -SODIUM CHLORIDE 0.9% 1,000 ML IV ONE; -SODIUM CHLORIDE 0.9% 1,000 ML IV SCH; -SODIUM CHLORIDE 0.9% 1,000 ML in EMPTY BAG 1 BAG IV SCH; -VERAPAMIL 2.5 MG/ML 2 ML AMP ONE; -fentaNYL (PF) 50 MCG/ML 5 ML AMP IV ONE
[2021-04-05 07:06] VITALS: TEMP 98
[2021-04-05] MEDS ORDERED: MIDAZOLAM 2 MG/2 ML VIAL ONE (07:08)
[2021-04-05] MEDS ORDERED: KETAMINE 10 MG/ML 20 ML VIAL ONE (07:08)
[2021-04-05] MEDS ORDERED: LIDOCAINE 1% INJ 10MG/ML (20 ML MDV) ONE (07:08)
[2021-04-05] MEDS ORDERED: GLYCOPYRROLATE 0.2 MG/ML 2 ML VIAL ONE (07:08)
[2021-04-05] MEDS ORDERED: PROPOFOL 10 MG/ML 20 ML VIAL IV ONE (07:08)
[2021-04-05 07:09] LABS: Glucose,Whole Blood 158 mg/dL (75-99)
--- NOTE | 2021-04-05 07:30 | P.PCN ---
Date of Procedure: 04/05/21 Procedure(s) Performed: Brief history: Patient is a pleasant 55-year-old white scheduled for an elective upper endoscopy as well as colonoscopy as a part of evaluation of GERD and screening for colon cancer Procedure performed: Esophagogastroduodenoscopy with biopsy Colonoscopy snare polypectomy and biopsy Preoperative diagnosis: GERD Screening for colon cancer Anesthesia: MAC Procedure: After informed consent was obtained from the patient was brought into the endoscopy unit and IV sedation was administered by anesthesia under continuous monitoring. Initially upper endoscopy was done. The Olympus GF 160 video endoscope was inserted inserted into the mouth and esophagus intubated without any difficulty and was gradually advanced into the stomach and duodenum and carefully examined. The bulb and second part of the duodenum appeared normal. The scope was then withdrawn into the stomach adequately insufflated with air and upon careful examination the antrum had mild patchy areas of erythema consistent with gastritis and biopsies were done from this area. The body, cardia and fundus appeared normal. The scope was then withdrawn into the esophagus. small sliding type hiatal hernia noted. The GE junction was located at 40 cm to the incilinear erosions with ulcerations noted in the distal esophagus consistent with LA grade C reflux esophagitis.est of the esophagus appeared normal. Patient tolerated the procedure well. At this time the patient continued to remain sedation. Initial digital rectal examination was normal. Olympus CF 160 video colonoscope was then inserted into the rectum and gradually advanced to the cecum without any difficulty. Careful examination was performed as the scope was gradually being withdrawn. The prep was excellent. The cecum, ascending colon, appeared normal. In the hepatic flexure there was a 3 mm sessile polyp removed by cold biopsy. In the transverse colon there was a 1 cm pedunculated polyp removed by snare polypectomy. Rest of the transverse colon, descending colon, sigmoid colon and rectum appeared normal. Retroflexion was performed in the rectum and no lesions were noted. Patient tolerated the procedure well. Impression: 1. Upper endoscopy revealed small hiatal hernia, LA grade C reflux esophagitis and mild gastritis 2. Colonoscopy revealed 3 mm hepatic flexure polyp status post cold biopsy and 1 cm pedunculated transverse colon polyp status post polypectomy. Recommendations: Findings of this examination were discussed with the patient as well as his family. He was advised to follow with the biopsy results. He will be started on Prilosec 20 mg twice daily and was advised to stop the Pepcid. Antireflux measures discussed with the patient . Advised to follow with the biopsy results and have a repeat colonoscopy in 3-5 years based on the biopsy results
[2021-04-05 08:14] VITALS: BP 138/72; PULSE 77; RESP 18
== END 2021-04-05 08:29 | disposition home or self-care (01) ==
LOC: ORWHC2ENDO 06:16
PROVIDERS: ATTEND Internal Medicine Gastroenterology
DX: Z12.11 Encounter for screening for malignant neoplasm of colon (principal); K63.5 Polyp of colon; K29.50 Unspecified chronic gastritis without bleeding; K21.00 Gastro-esophageal reflux disease with esophagitis, without bleeding; K44.9 Diaphragmatic hernia without obstruction or gangrene; I10 Essential (primary) hypertension; E78.5 Hyperlipidemia, unspecified; Z87.891 Personal history of nicotine dependence; E11.9 Type 2 diabetes mellitus without complications; E07.9 Disorder of thyroid, unspecified; R56.9 Unspecified convulsions; M19.90 Unspecified osteoarthritis, unspecified site; Z87.19 Personal history of other diseases of the digestive system; Z98.890 Other specified postprocedural states; Z79.84 Long term (current) use of oral hypoglycemic drugs; Z79.82 Long term (current) use of aspirin; Z79.890 Hormone replacement therapy; Z79.899 Other long term (current) drug therapy; Z88.1 Allergy status to other antibiotic agents; Z88.0 Allergy status to penicillin
CPT/HCPCS: 88305; 45380; 45385; 43239; J2250; J2001; J2704

== ENCOUNTER → 2021-08-28 | Outpatient (CLI) | payer BC ==
[2021-08-28 14:34] LABS: Basophils # (A) 0.09 X 10*3/uL (0.00-0.10); Basophils % (A) 1.4 %; Eosinophils % (A) 6.2 %; HCT 40.1 % (39.6-50.0); HGB 12.9 g/dL (13.0-17.0); Immature Grans, Automated 0.3 %; Lymphocytes # (A) 2.05 X 10*3/uL (0.90-5.00); Lymphocytes % (A) 31.6 %; MCHC 32.2 g/dL (32.0-37.0); MCV 93.3 fL (80.0-97.0); Mean Platelet Volume 10.9 fL (9.5-12.2); Monocytes # (A) 0.58 X 10*3/uL (0.20-1.00); NRBC Per 100 WBC 0 /100 WBCS (0.0-0.0); Neutrophils # (A) 3.34 X 10*3/uL (1.80-7.70); Neutrophils % (A) 51.5 %; Platelet Count 190 X 10*3/uL (140-440); RDW 13.8 % (11.5-14.5); WBC 6.48 X 10*3/uL (4.50-10.00)
[2021-08-28 15:00] LABS: ALT 31 U/L (10-49); AST 21 U/L (14-35); African American GFR (CKD) 103.5 (60.0-200.0); Albumin 4.5 g/dL (3.8-4.9); Alkaline Phosphatase 86 U/L (41-126); Blood Urea Nitrogen 16.5 mg/dL (9.0-27.0); Calcium 9.3 mg/dL (8.7-10.3); Carbon Dioxide 24.8 mmol/L (20.0-27.5); Chloride 100 mmol/L (96-109); Chol/HDL Ratio 4.42 Ratio; Creatine Kinase 148 U/L (35-257); Globulin 2.5 g/dL (1.6-3.3); Glucose 108 mg/dL (70-110); LDL Cholesterol,Calculated 67.7 mg/dL (0.0-131.0); Non-African American GFR(CKD) 89.3 (60.0-200.0); Sodium 138 mmol/L (135-145)
== END | disposition home or self-care (01) ==
LOC: LABWHC1 08:22
PROVIDERS: ATTEND Nurse Practitioner Adult Health
DX: Z12.5 Encounter for screening for malignant neoplasm of prostate (principal); I10 Essential (primary) hypertension; E03.9 Hypothyroidism, unspecified; R73.9 Hyperglycemia, unspecified
CPT/HCPCS: 84439; 84481; 80061; 80053; 82550; 84443; 85025; 36415; G0103

== ENCOUNTER 2022-02-23 08:14 | Day surgery (SDC) | payer BC ==
[2022-02-21 15:16] VITALS: BMI 34.0
[~2022-02-23 08:14] MED LIST changes: -LIDOCAINE 1% (10MG/ML) FOR IV START INTRADERMA PRN
[2022-02-23 08:40] VITALS: TEMP 97.3
[2022-02-23 09:07] LABS: Glucose,Whole Blood 110 mg/dL (70-110)
[2022-02-23] MEDS ORDERED: LIDOCAINE 2% INJ 20 MG/ML (2 ML VIAL) ONE (09:37)
[2022-02-23] MEDS ORDERED: MIDAZOLAM 2 MG/2 ML VIAL ONE (09:37)
[2022-02-23] MEDS ORDERED: PROPOFOL 10 MG/ML 20 ML VIAL IV ONE (09:37)
[2022-02-23] MEDS ORDERED: fentaNYL (PF) 50 MCG/ML 2 ML AMP ONE (09:37)
--- NOTE | 2022-02-23 09:53 | P.PCN ---
Date of Procedure: 02/23/22 Procedure(s) Performed: BRIEF HISTORY: Patient is a 56-year-old, pleasant, white male scheduled for an upper endoscopy as a part of follow-up of severe reflux esophagitis diagnosed with upper endoscopy a year ago. He has been maintained on PPI since then and symptoms have resolved. He scheduled for a repeat upper endoscopy to evaluate for Maguire's esophagus. PROCEDURE PERFORMED: Esophagogastroduodenoscopy with biopsy. PREOPERATIVE DIAGNOSIS: Long-standing history of GERD. IV sedation per anesthesia. PROCEDURE: After informed consent was obtained, the patient was brought into the endoscopy unit. IV sedation was administered by Anesthesia under continuous monitoring. Initially the Olympus GIF-140 video endoscope was inserted into the mouth. Esophagus intubated without any difficulty. It was gradually advanced into the stomach and duodenum and carefully examined. The bulb and the second part of the duodenum appeared normal. The scope at this time was withdrawn to the stomach, adequately insufflated with air, and upon careful examination, mucosa of the antrum, body, cardia and the fundus appeared normal. The scope was then withdrawn into the esophagus. Small sliding type hiatal hernia noted. The GE junction was located at 42 cm from the incisors. There was a short segment of Maguire's esophagus extending from 41-42 cm from the incisors and multiple biopsies were done from this area. The rest of the esophagus appeared normal. There were no erosions or ulcerations seen and the patient tolerated the procedure well. IMPRESSION: 1. 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 2. Small hiatal hernia. RECOMMENDATIONS: The findings of this examination were discussed with the patient as well as his family. He was advised to follow with the biopsy results. If the biopsy confirms the presence of Maguire's esophagus he can have a repeat upper endoscopy in 3 years..
[2022-02-23 10:00] VITALS: RESP 16
[2022-02-23 10:17] VITALS: BP 132/87; PULSE 49
== END 2022-02-23 10:31 | disposition home or self-care (01) ==
LOC: ORWHC2ENDO 08:14
PROVIDERS: ATTEND Internal Medicine Gastroenterology
DX: K21.00 Gastro-esophageal reflux disease with esophagitis, without bleeding (principal); K22.70 Barrett's esophagus without dysplasia; K44.9 Diaphragmatic hernia without obstruction or gangrene
CPT/HCPCS: 43239; J2250; J3010; J2704; J2001; 88305

== ENCOUNTER → 2022-12-27 | Outpatient (CLI) | payer BC ==
--- NOTE | 2022-12-28 14:22 | US ---
EXAMINATION TYPE: US mass soft tissue chest/back DATE OF EXAM: 12/27/2022 COMPARISON: NONE CLINICAL INDICATION: Male, 57 years old with history of R07.89 OTHER CHEST PAIN; pain rt chest below breast TECHNIQUE: Scanned area of pain no abnormalities seen. FINDINGS/IMPRESSIONS: No solid or cystic mass identified. No organized fluid collections or lymphadenopathy demonstrated. No ultrasound evidence for abnormality. MTDD
== END | disposition home or self-care (01) ==
LOC: RADUSWWP 16:02
PROVIDERS: ATTEND Family Medicine
DX: R07.89 Other chest pain (principal)
CPT/HCPCS: 76604

== ENCOUNTER → 2023-01-29 | Outpatient (CLI) | payer BC ==
--- NOTE | 2023-01-29 10:53 | CT ---
EXAMINATION TYPE: CT chest wo con DATE OF EXAM: 01/29/2023 COMPARISON: Correlation ultrasound 12/27/2022 HISTORY: 57-year-old male R07.81, Pleurodynia, Rt anterior/lateral rib pain. Injury unknown. TECHNIQUE: CT of the chest without contrast. Coronal and sagittal reconstructions performed. CT DLP: 633mGycm. Automatic exposure control utilized for a dose reduction. FINDINGS: The heart is normal size without pericardial effusion. LAD and circumflex coronary artery calcificati ons are present. Mild aneurysm ascending aorta 4.0 cm. Conventional arch vessel branching anatomy. Scattered nonenlarged mediastinal lymph nodes measuring up to 6 mm. No thoracic lymphadenopathy by CT size criteria. There is mild to moderate emphysematous change. Mild diffuse bronchial wall thickening. 9 mm posterior right midlung pulmonary nodule, axial image 28 some hazy dependent atelectasis is pres ent. No consolidation or pleural effusion. 1.8 cm hypodensity left liver lobe probably a small cyst. Minimal diverticular change at the splenic flexure of the colon. Bones: Scattered mild degenerative disc disease. No acute or healing rib fracture seen. IMPRESSION: 1. COPD with mild to moderate emphysema. 2. A 9 mm posterior right midlung pulmonary nodule. Per Fleischner criteria, recommend three-month fo llow-up CT chest. If any enlargement at that time, either pet/ct or tissue sampling can be performed. 3. No discrete rib or chest wall abnormality is seen.
== END | disposition home or self-care (01) ==
LOC: RADCTMAIN 08:05
PROVIDERS: ATTEND Family Medicine
DX: J43.9 Emphysema, unspecified (principal); R91.1 Solitary pulmonary nodule; R07.81 Pleurodynia
CPT/HCPCS: 71250

== ENCOUNTER → 2023-09-02 | Outpatient (CLI) | payer BC ==
--- NOTE | 2023-09-02 19:43 | CT ---
EXAMINATION TYPE: CT chest w con DATE OF EXAM: 09/02/2023 COMPARISON: 01/29/2023 HISTORY: lung nodule CT DLP: 669.6 mGycm Automated exposure control for dose reduction was used. TECHNIQUE: CT scan of the chest is performed with IV Contrast, patient injected with 100 mL of Isovue 300. MIP Images are created on CT scanner and reviewed. 3D reconstructed images are created on an independent workstation and reviewed. FINDINGS: There are mild emphysematous changes. 9 mm right lower lobe lung nodule is again seen and is stable. There is a 4.5 mm groundglass nodule i n the right upper lobe anteriorly. No new or suspicious lung mass or nodule is seen. There is no airspace consolidation or abnormal interstitial density. There is no pleural effusion or pleural thickening or pneumothorax. The great vessels the chest are normal. There is no mediastinal, hilar or axillary adenopathy. Limited scanning through the upper abdomen reveals no gross abnormality. IMPRESSION: 1. BI-RADS Category 2, benign findings. Continue routine screening at yearly levels. 2. Mild emphysematous changes. 3. No acute cardiopulmonary disease. Follow-up recommendations for incidental pulmonary nodules are per Fleischner?s [employer] or [employer].
== END | disposition home or self-care (01) ==
LOC: RADCTMAIN 15:53
PROVIDERS: ATTEND Internal Medicine Critical Care Medicine
DX: R91.1 Solitary pulmonary nodule (principal); J43.9 Emphysema, unspecified
CPT/HCPCS: 71260; Q9967

== ENCOUNTER → 2023-09-09 | Outpatient (CLI) | payer BC ==
[2023-09-09 14:51] LABS: ALT 31 U/L (10-49); AST 24 U/L (14-35); Albumin 4.5 g/dL (3.8-4.9); Alkaline Phosphatase 73 U/L (41-126); BUN/Creat Ratio 20.75 Ratio (12.00-20.00); Blood Urea Nitrogen 16.6 mg/dL (9.0-27.0); Calcium 9.7 mg/dL (8.7-10.3); Carbon Dioxide 23.4 mmol/L (21.6-31.8); Chloride 104 mmol/L (96-109); Creatine Kinase 246 U/L (35-257); Globulin 2.5 g/dL (1.6-3.3); Glucose 123 mg/dL (70-110); LDL Cholesterol,Calculated 79.4 mg/dL (0.0-131.0); Potassium 3.9 mmol/L (3.5-5.5); Sodium 140 mmol/L (135-145); T4, Free (Free Thyroxine) 1.38 ng/dL (0.80-1.80); Total Bilirubin 0.5 mg/dL (0.3-1.2)
== END | disposition home or self-care (01) ==
LOC: LABWHC1 08:29
PROVIDERS: ATTEND Family Medicine
DX: E03.9 Hypothyroidism, unspecified (principal); E78.5 Hyperlipidemia, unspecified; R73.9 Hyperglycemia, unspecified
CPT/HCPCS: 36415; 80053; 80061; 82550; 83036; 84439; 84443; 84481

== ENCOUNTER → 2024-04-08 | Outpatient (CLI) | payer BC ==
[2024-04-08 17:03] LABS: ALT 28 U/L (10-49); AST 19 U/L (14-35); Albumin 4.5 g/dL (3.8-4.9); Albumin/Globulin Ratio 1.73 Ratio (1.60-3.17); Alkaline Phosphatase 79 U/L (41-126); BUN/Creat Ratio 16.22 Ratio (12.00-20.00); Blood Urea Nitrogen 14.6 mg/dL (9.0-27.0); Calcium 9.7 mg/dL (8.7-10.3); Chloride 101 mmol/L (96-109); Chol/HDL Ratio 4.09 Ratio; Creatine Kinase 82 U/L (35-257); Globulin 2.6 g/dL (1.6-3.3); Glucose 110 mg/dL (70-110); LDL Cholesterol,Calculated 96.8 mg/dL (0.0-131.0); Potassium 4.2 mmol/L (3.5-5.5); Prostate Specific Antigen 0.68 ng/mL (0.000-3.500); Sodium 140 mmol/L (135-145); T4, Free (Free Thyroxine) 1.35 ng/dL (0.80-1.80); Total Bilirubin 0.5 mg/dL (0.3-1.2); Total Protein 7.1 g/dL (6.2-8.2)
[2024-04-08 17:18] LABS: Basophils # (A) 0.08 X 10*3/uL (0.00-0.10); Basophils % (A) 1.3 %; Eosinophils # (A) 0.43 X 10*3/uL (0.04-0.35); Eosinophils % (A) 6.9 %; HCT 42.8 % (39.6-50.0); HGB 14.1 g/dL (13.0-17.0); Lymphocytes # (A) 1.81 X 10*3/uL (0.90-5.00); MCH 29.1 pg (27.0-32.0); MCHC 32.9 g/dL (32.0-37.0); MCV 88.4 FL (80.0-97.0); Mean Platelet Volume 10.7 FL (9.5-12.2); Monocytes # (A) 0.71 X 10*3/uL (0.20-1.00); Monocytes % (A) 11.4 %; NRBC Per 100 WBC 0 X 10*3/uL (0.00-0.01); Neutrophils # (A) 3.19 X 10*3/uL (1.80-7.70); Neutrophils % (A) 51.1 %; Platelet Count 186 X 10*3/uL (140-440); RBC 4.84 X 10*6/uL (4.40-5.60); RDW 14.5 % (11.5-14.5); WBC 6.24 X 10*3/uL (4.50-10.00)
== END | disposition home or self-care (01) ==
LOC: LABWHC1 08:30
PROVIDERS: ATTEND Nurse Practitioner Adult Health
DX: Z12.5 Encounter for screening for malignant neoplasm of prostate (principal); E11.9 Type 2 diabetes mellitus without complications; E03.9 Hypothyroidism, unspecified; E78.5 Hyperlipidemia, unspecified
CPT/HCPCS: 36415; 80053; 80061; 82550; 84153; 84439; 84443; 85025